=== PATIENT | female | born 1960 | race Caucasian/White ===

== ENCOUNTER → 2016-08-14 | Outpatient (CLI) | payer BC ==
[~2016-08-14] MED LIST: ACET-1138 PO; ASPEC81 PO; ATV/1 PO; ATV1 PO; BUPR-79 PO; CLB200 PO; LEVO50TA6 PO; NAPR1TAB9 PO; ONDA8TAB6 PO; RXC5 PO; SNK PO
[2016-08-14 19:04] LABS: THYROID STIMULATING HORMONE 1.25 uIu/ml (0.300-4.500)
== END | disposition home or self-care (01) ==
LOC: C.LABMFLN 12:01
PROVIDERS: ATTEND Family Medicine
DX: E03.9 Hypothyroidism, unspecified (principal)

== ENCOUNTER 2016-09-11 10:42 | Inpatient (IN) | payer BC ==
[2016-09-01 13:53] VITALS: BMI 41.0
--- NOTE | 2016-09-01 14:23 | PAT Medication Instructions ---
Service Date Sep 01, 2016. Current Home Medication List Bupropion (Wellbutrin Sr), 150 MG PO QAM Levothyroxine Sodium (Levothyroxine Sodium), 1 TAB PO QAM Lorazepam (Ativan), 1 MG PO HS Naproxen (Aleve), 440 MG PO BID PRN for online publisher Instructions For Your Scheduled Surgery Naproxen (Aleve), 440 MG PO BID PRN for RN (check with surgeon for instructions) - Take the following medications the morning of surgery with a sip of water: Levothyroxine Sodium (Levothyroxine Sodium), 1 TAB PO QAM Bupropion (Wellbutrin Sr), 150 MG PO QAM - Take the following medications as scheduled the night before surgery: Lorazepam (Ativan), 1 MG PO HS If you have any questions please call us at [phone] (Johanne Yi PA-C ) or [phone] or [phone]
[2016-09-01 15:00] LABS: BASO % 0.1 %; BASO ABS # 0.01 K/uL (0-0.2); COMPLETE YES; EOS % 2.1 %; HEMATOCRIT 35.8 % (37-47); IG% 0.1 %; LYMPH % 18.3 %; LYMPH ABS # 1.22 K/uL (1.2-3.4); MEAN CELL VOLUME 92.7 fL (80-100); MEAN CORPUSCULAR HEMOGLOBIN 31.1 pg (25-34); MEAN CORPUSCULAR HGB CONC 33.5 g/dl (32-36); MEAN PLATELET VOLUME 12.8 fL (7.4-10.4); MONO % 6.3 %; NEUT % 73.1 %; PLATELET COUNT 224 K/uL (130-400); RED BLOOD COUNT 3.86 M/uL (4.2-5.4); WHITE BLOOD COUNT 6.68 K/uL (4.8-10.8)
[2016-09-01 15:10] LABS: URINE APPEARANCE CLEAR (CLEAR); URINE BILIRUBIN NEG (NEG); URINE COLOR YELLOW; URINE EPITHELIAL CELL AUTO >30 /lpf (0-5); URINE NITRITE NEG (NEG); URINE SPECIFIC GRAVITY 1.018 (1.000-1.030); UROBILINOGEN NEG (NEG); ZZUR CULT IF INDIC CLEAN CATCH YES
[2016-09-01 15:12] LABS: PARTIAL THROMBOPLASTIN RATIO 1.1; PROTHROMBIN TIME (PATIENT) 10.3 SECONDS (9.0-12.0)
[2016-09-01 15:17] LABS: MANUAL MICROSCOPIC REQUIRED? NO; REVIEW REQ? NO
[2016-09-01 16:39] LABS: BUN/CREATININE RATIO 23.3 (10-20); CALCIUM 8.6 mg/dl (8.5-10.1); CREATININE 0.68 mg/dl (0.60-1.20); POTASSIUM 3.8 mmol/L (3.5-5.1)
--- NOTE | 2016-09-08 08:49 | HISTORY & PHYSICAL EXAMINATION ---
DATE OF ADMISSION: 09/11/2016 CHIEF COMPLAINT: Right hip pain. HISTORY OF PRESENT ILLNESS: Ms. Tyler is a 56-year-old female with a 1-year history of right hip pain. The patient previously had spine issues and was treated accordingly. However, she continued to have residual right hip pain she rates at 10/10. She was then found to have an arthritic hip. She has failed conservative treatment. She has been ambulating with a cane and she is scheduled for right hip replacement. PAST MEDICAL HISTORY: Thyroid disease, obesity. She denies heart disease, diabetes or DVT. PAST SURGICAL HISTORY: Tubal ligation, cholecystectomy, decompression and fusion lumbar side. SOCIAL HISTORY: The patient denies alcohol or tobacco use. She lives in a 1-story home. 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 FAMILY HISTORY: Negative for DVT. MEDICATIONS: Levothyroxine 50 mcg daily, bupropion 150 mg daily, lorazepam 1 mg daily, Aleve 2 tablets twice daily. ALLERGIES: CODEINE AND IV CONTRAST. REVIEW OF SYSTEMS: See HPI. Ten other systems reviewed, all negative. PHYSICAL EXAMINATION: VITAL SIGNS: Height 5 foot 2, weight 222 pounds, BMI is 41. GENERAL: This is a well-developed, well-nourished female who is alert and oriented x3. Mood and affect are appropriate. HEAD, EYES, EARS, NOSE, AND THROAT: Normocephalic, atraumatic. Mucous membranes are moist and intact. NECK: Supple without lymphadenopathy. HEART: Regular rate and rhythm without murmurs, rubs or gallops. LUNGS: Clear to auscultation without wheezes or rhonchi. ABDOMEN: Soft and nontender. Bowel sounds are equal and active. EXTREMITIES: No ecchymosis, redness or warmth. Thigh and calf are soft and nontender. She walks with an antalgic gait. Log roll of the hip reproduces pain in the groin. Range of motion is decreased. She is neurovascularly intact with +5/5 strength. She has mild lower extremity edema. X-RAY EXAMINATION: AP and lateral views show joint space narrowing and osteophyte formation. IMPRESSION: 1. Degenerative joint disease, right hip. 2. Morbid obesity. PLAN: The patient will be admitted for a right total hip arthroplasty. We will plan on lateral approach. We will plan on aspirin for DVT prophylaxis. PCP is Dr. Natacha Torres [facility].
[~2016-09-11] VITALS: Ht 157.5 cm; Wt 102.3 kg
[2016-09-11] VITALS (7 sets, daily range): BP systolic 90–141; BP diastolic 61–79; PULSE 65–89; TEMP 36.3–36.9; O2SAT 97–100; Ht 157.5 cm; Wt 102.3 kg
[2016-09-11] MEDS: TRANEXAMIC ACID INJ 1,000 MG in SODIUM CHLORIDE 0.9% 100ML 100 ML IV SCH ×2 (06:30→12:48)
[~2016-09-11 10:42] MED LIST changes: -ACET-1138 PO; +ACETAMINOPHEN 500 MG TAB PO SCH; -ASPEC81 PO; -ATV1 PO; +BUPIVACAINE 0.5 % 5 MG/1 ML PF 10ML VIAL ONE; +CEFAZOLIN 2000 MG/60 ML D5W 60 ML IV SCH; -CLB200 PO; +CeleBREX 200 MG CAP PO SCH; +DEXAMETHASONE 4 MG TAB PO SCH; +FAMOTIDINE 20 MG TAB PO SCH; +GABAPENTIN 300 MG CAP PO SCH; +LACTATED RINGER'S 1000ML 1,000 ML IV SCH; +LACTATED RINGER'S 1000ML 500 ML IV ONE; +LACTATED RINGER'S 1000ML IV SCH; +METOCLOPRAMIDE HCL 10 MG TAB PO SCH; -ONDA8TAB6 PO; +OXYCODONE HCL 10 MG TABCR (OXYCONTIN) PO SCH; +POLYMYXIN B SULFATE 100,000 UNITS in NSS 100ML IR SCH; -RXC5 PO; -SNK PO; +VANCOMYCIN INJ 400 MG in NSS 100ML IR SCH
--- NOTE | 2016-09-11 12:14 | History & Physical Bridge Note ---
H&P Re-Evaluation Bridge Note: I have examined the patient, reviewed the History & Physical and in the interval since the performance of the History & Physical I have noted the following changes of clinical significance: No changes noted
[2016-09-11] MEDS ORDERED: FENTANYL CITRATE INJ 50 MCG/1 ML 2 ML VIAL ONE (12:17)
[2016-09-11] MEDS ORDERED: LIDOCAINE HCL 2% 2 ML VIAL (20MG/ML) ONE (12:17)
[2016-09-11] MEDS ORDERED: MIDAZOLAM HCL 1 MG/ML 2ML VIAL ONE ×2 (12:17→13:50)
[2016-09-11] MEDS ORDERED: PROPOFOL IV EMULSION 10 MG/ML 20 ML VIAL IV ONE (12:17)
[2016-09-11] MEDS ORDERED: ONDANSETRON INJ 2 MG/ML 2 ML VIAL ONE (12:17)
[2016-09-11] MEDS ORDERED: DEXAMETHASONE SOD INJ 4 MG/ML VIAL ONE (12:17)
[2016-09-11] MEDS ORDERED: POVIDONE-IODINE OP SOLN 30 ML BTL ONE (12:50)
[2016-09-11] MEDS ORDERED: ORTHO JOINT ANESTHETIC ONE (12:50)
[2016-09-11] MEDS ORDERED: BACITRACIN 50000 UNIT VIAL ONE (12:50)
[2016-09-11] MEDS ORDERED: ATROPINE SULFATE 0.1 MG/ML 5ML SYR IV PRN (13:30)
[2016-09-11] MEDS ORDERED: ONDANSETRON INJ 2 MG/ML 2 ML VIAL IV PRN ×2 (13:30→15:30)
[2016-09-11] MEDS ORDERED: EpHEDrine SULFATE INJ 50 MG/ML AMP IV PRN (13:30)
[2016-09-11] MEDS ORDERED: FENTANYL CITRATE INJ 50 MCG/1 ML 2 ML VIAL IV PRN (13:30)
[2016-09-11] MEDS: ROPIVACAINE 5MG/ML 30 ML 150 MG, BUPIVACAINE/EPINEPHR 0.5% MPF 30 ML, KETOROLAC TROMETH... INFIL SCH ×14 (14:35→15:22)
--- NOTE | 2016-09-11 15:16 | [facility] Post Operative Brief Note ---
Immediate Operative Summary Operative Date Sep 11, 2016. Pre-Operative Diagnosis Right Hip Degenerative Joint Disease Post-Operative Diagnosis Same as pre-operative MORBID OBESITY BMI 42 Procedure(s) Performed Right Total Hip Arthroplasty, Direct Anterior Surgeon Dr. Samson Brooke Return Checker Surgeon(s) Crystal Cole PA-C Estimated Blood Loss 300 Findings DJD Specimens SPECIMEN: A: Right Femoral Head Complication(s) None Disposition Recovery Room / PACU
[2016-09-11] MEDS ORDERED: SOD PHOSPHATE/SOD BIPHOSPHATE ENEMA 132 ML BTL PR PRN (15:30)
[2016-09-11] MEDS ORDERED: BISACODYL 10 MG SUPP PR PRN (15:30)
[2016-09-11] MEDS ORDERED: MAGNESIUM HYDROXIDE SUSP 30 ML UDC PO PRN (15:30)
[2016-09-11] MEDS ORDERED: METOCLOPRAMIDE HCL INJ 5 MG/ML 2 ML VIAL IV PRN (15:30)
[2016-09-11] MEDS ORDERED: ZOLPIDEM TARTRATE 5 MG TAB PO PRN (15:30)
[2016-09-11] MEDS ORDERED: DiphenhydrAMINE HCL 50 MG/ML VIAL IV PRN (15:30)
[2016-09-11] MEDS ORDERED: TRAMADOL HCL 50 MG TAB PO PRN (15:30)
[2016-09-11] MEDS ORDERED: ALUMINUM/MAGNESIUM/SIMETH (MAALOX MAX) 30 ML UDC PO PRN (15:30)
[2016-09-11] MEDS ORDERED: MoRPHine SULFATE 2 MG/ML CARP IV PRN (15:30)
--- NOTE | 2016-09-11 16:26 | DIAGNOSTIC IMAGING REPORT ---
RIGHT PELVIS/UNILATERAL HIP 1 VIEW CLINICAL HISTORY: IN PACU - A/P PELVIS and LATERAL HIP INCLUDING ALL OF IMPLANT Right hip replacement COMPARISON: None. DISCUSSION: Status post total right hip arthroplasty. Good contact between prosthetic and underlying bone. Surgical drain is present expected soft tissue postoperative change IMPRESSION: Anatomic alignment status post total right hip replacement Electronically signed by: Tony Alvarez M.D. 09/11/2016 4:24 PM Dictated Date/Time: 09/11/2016 4:23 PM
--- NOTE | 2016-09-11 17:34 | Anesthesiology Progress Note ---
Anesthesia Post Op Note Date & Time Sep 11, 2016 at 17:33 Vital Signs Pain Intensity: 0 Vital Signs Past 12 Hours Date Time Temp Pulse Resp B/P Pulse Ox O2 Delivery O2 Flow Rate FiO2 09/11/16 17:00 36.5 60 16 113/59 100 Nasal Cannula 2 09/11/16 16:50 36.5 56 16 111/43 99 Nasal Cannula 2 09/11/16 16:40 36.5 58 16 106/57 100 Nasal Cannula 2 09/11/16 16:30 57 16 101/62 100 Nasal Cannula 2 09/11/16 16:20 60 16 110/47 100 Nasal Cannula 2 09/11/16 16:10 66 16 101/41 100 Nasal Cannula 2 09/11/16 16:00 73 16 113/44 100 Mask 10 09/11/16 15:50 63 16 104/43 100 Mask 10 09/11/16 15:43 36. 70 16 94/50 100 Mask 10 09/11/16 11:01 36.9 89 18 141/79 99 Room Air Notes Mental Status: alert / awake / arousable, participated in evaluation Pt Amnestic to Procedure: Yes Nausea / Vomiting: adequately controlled Pain: adequately controlled Airway Patency, RR, SpO2: stable & adequate BP & HR: stable & adequate Hydration State: stable & adequate Neuraxial Anesthesia: was administered, sensory block is resolving Anesthetic Complications: no major complications apparent
[2016-09-11] MEDS: D5W AND 1/2NSS + 20MEQ KCL 1,000 ML IV SCH (18:23)
[2016-09-11] MEDS: KETOROLAC TROMETHAMINE 30 MG/ML VIAL IV. SCH ×2 (18:25→23:34)
[2016-09-11] MEDS: OXYCODONE HCL IR 5 MG TAB (IMMEDIATE RELEASE) PO PRN (19:21)
[2016-09-11] MEDS: ACETAMINOPHEN 500 MG TAB PO SCH (20:50)
[2016-09-11] MEDS: ASPIRIN 81 MG ECTAB PO SCH (20:51)
[2016-09-11] MEDS ORDERED: SENNA 8.6 MG TAB PO SCH (21:00)
[2016-09-11] MEDS ORDERED: LORAZEPAM 1 MG TAB PO SCH (21:00)
[2016-09-11] MEDS ORDERED: TRANEXAMIC ACID INJ 1,000 MG in SODIUM CHLORIDE 0.9% 100ML 100 ML IV SCH (21:00)
[2016-09-11] MEDS: CEFAZOLIN IV 2,000 MG in DEXTROSE 5% 50ML 50 ML IV SCH (21:40)
--- NOTE | 2016-09-12 00:17 | OPERATIVE REPORT ---
DATE OF OPERATION: 09/11/2016 PREOPERATIVE DIAGNOSES: 1. Degenerative arthritis, right hip. 2. Morbid obesity, body mass index of 42. POSTOPERATIVE DIAGNOSES: Same. PROCEDURE: Right total hip replacement. SURGEON: Samson Brooke MD. CHEMISTRY LABORATORY TECHNICIAN: LETICIA Torres. ANESTHESIA: Spinal. BLOOD LOSS: 300 mL. REPLACEMENT FLUIDS: 2300 mL crystalloid. DRAINS: Hemovacs x1. CULTURES: None. COMPLICATIONS: None. COMPONENTS USED: Tamayo \T\ Nephew polar hip system: Acetabulum size 48, femur size 1 standard offset, femoral head -3, 32 mm. NOTE: LETICIA Torres was present and assisted throughout due to the complicated nature of this case. She helped with preparation and setup. She first assisted throughout and she personally closed the muscle fascia, subcutaneous and skin layers and applied the postoperative dressing. DESCRIPTION: Following satisfactory spinal, the patient was supine. The right hip was placed in the traction device, the left hip in the well-leg cheema. The right hip was then prepared with ChloraPrep and draped sterilely with the drape. Following a surgical time-out, an anterior approach in the interval between the sartorius and tensor muscles was completed. The circumflex femoral vessels were identified and ligated with some difficulty. The approach down to the muscle layer was very difficult because of at least a 5-6 inch subcutaneous fat layer and an abdominal pannus, which made the exposure difficult. This required additional time and effort to expose the circumflex femoral vessels. There were multiple circumflex femoral vessels, which made ligation difficult in the deep hole. Eventually, the vessels were ligated. Bleeding was controlled and an anterior capsulotomy was completed. This revealed a very arthritic femoral neck and head. The femoral neck was trimmed. The patient's obese habitus made trimming difficult and the femoral neck had to be recut a second time. The head was removed. The acetabular self-retaining retractor was placed with difficulty. The acetabulum was prepared after excision of soft tissue with reaming and a 48 shell was impacted into an anatomic position and secured with a dome screw. Local anesthetic was placed and after irrigation, the poly liner was placed. The femur was placed into a position of external rotation, extension and adduction. This allowed access to the proximal femoral canal. The patient's pannus made the exposure difficult. The canal was prepared up to only a size 1. Intraoperative fluoroscopy showed good fit and fill of the proximal canal. The leg length was slightly long, but this was the smaller size stem and the smaller size head available and it was felt that this was acceptable. The hip was dislocated. The trial component removed. The final implant placed and reduced with similar position confirmed. The wound was irrigated and Betadine could not be used because of an iodine allergy. The capsule was closed with 1 Vicryl interrupted. A drain was placed. The muscle fascia was closed with a running suture of #1 Vicryl. The fatty layer was closed with multiple layers with 1-0 and 2-0 Vicryl and the skin with a running subcuticular stitch of 3-0 V-Loc. Dermabond and a dry dressing were applied. The patient was returned to her bed in stable condition. I attest to the content of the Intraoperative Record and any orders documented therein. Any exceptio ns are noted below.
[2016-09-12] MEDS: OXYCODONE HCL IR 5 MG TAB (IMMEDIATE RELEASE) PO PRN ×2 (01:03→11:31)
[2016-09-12] MEDS: D5W AND 1/2NSS + 20MEQ KCL 1,000 ML IV SCH ×2 (03:42→13:25)
[2016-09-12] MEDS: ACETAMINOPHEN 500 MG TAB PO SCH ×2 (03:43→11:32)
[2016-09-12 03:44] VITALS: BP 115/71; PULSE 59; TEMP 36.5; O2SAT 98
[2016-09-12 05:38] LABS: COMPLETE YES; HEMATOCRIT 28.6 % (37-47); IG% 0.2 %; LYMPH % 5.3 %; LYMPH ABS # 0.63 K/uL (1.2-3.4); MEAN CELL VOLUME 91.7 fL (80-100); MEAN CORPUSCULAR HEMOGLOBIN 31.7 pg (25-34); MEAN CORPUSCULAR HGB CONC 34.6 g/dl (32-36); MEAN PLATELET VOLUME 12.9 fL (7.4-10.4); MONO % 5.2 %; NEUT % 89.3 %; PLATELET COUNT 198 K/uL (130-400); RED BLOOD COUNT 3.12 M/uL (4.2-5.4); WHITE BLOOD COUNT 11.81 K/uL (4.8-10.8)
[2016-09-12] MEDS: CEFAZOLIN IV 2,000 MG in DEXTROSE 5% 50ML 50 ML IV SCH (05:40)
[2016-09-12] MEDS: KETOROLAC TROMETHAMINE 30 MG/ML VIAL IV. SCH ×2 (05:41→11:31)
[2016-09-12 05:59] LABS: CALCIUM 8.1 mg/dl (8.5-10.1); CREATININE 0.65 mg/dl (0.60-1.20); POTASSIUM 4.5 mmol/L (3.5-5.1)
[2016-09-12] MEDS ORDERED: LEVOTHYROXINE 50 MCG TAB PO SCH (06:00)
[2016-09-12 07:21] VITALS: BP 102/67; PULSE 70; TEMP 36.5; O2SAT 99
--- NOTE | 2016-09-12 08:09 | Orthopedic Progress Note ---
Orthopedic Progress Note Date of Service Sep 12, 2016. Subjective Post OP Day: 1 Reports: feeling well, Denies: SOB, calf pain, chest pain, light headedness, nausea / vomiting Objective calves soft nontender, N/V intact, dressing C/D/I, A&O x3, toes mobile, hemovac drainage (25/20 cc per shift) Date Time Temp Pulse Resp B/P Pulse Ox O2 Delivery O2 Flow Rate FiO2 09/12/16 07:21 36.5 70 16 102/67 99 Room Air 09/12/16 03:44 36.5 59 16 115/71 98 Room Air 09/11/16 22:53 36.4 71 16 90/61 98 Room Air 09/11/16 20:11 36.4 65 18 102/67 99 Room Air 2.0 09/11/16 19:45 Nasal Cannula 2.0 09/11/16 19:20 36.5 83 16 102/71 98 Nasal Cannula 2.0 09/11/16 18:15 36.3 65 18 105/69 100 Nasal Cannula 2.0 09/11/16 17:56 36.5 67 16 110/76 97 Nasal Cannula 2.0 09/11/16 17:15 36.5 65 16 105/61 98 Nasal Cannula 2.0 09/11/16 17:15 Nasal Cannula 2.0 09/11/16 17:15 Nasal Cannula 2.0 09/11/16 17:00 36.5 60 16 113/59 100 Nasal Cannula 2 09/11/16 16:50 36.5 56 16 111/43 99 Nasal Cannula 2 09/11/16 16:40 36.5 58 16 106/57 100 Nasal Cannula 2 09/11/16 16:30 57 16 101/62 100 Nasal Cannula 2 09/11/16 16:20 60 16 110/47 100 Nasal Cannula 2 09/11/16 16:10 66 16 101/41 100 Nasal Cannula 2 09/11/16 16:00 73 16 113/44 100 Mask 10 09/11/16 15:50 63 16 104/43 100 Mask 10 09/11/16 15:43 36. 70 16 94/50 100 Mask 10 09/11/16 11:01 36.9 89 18 141/79 99 Room Air Laboratory Results 24 Hours: Test 09/12/16 05:00 White Blood Count 11.81 K/uL Red Blood Count 3.12 M/uL Hemoglobin 9.9 g/dL Hematocrit 28.6 % Mean Corpuscular Volume 91.7 fL Mean Corpuscular Hemoglobin 31.7 pg Mean Corpuscular Hemoglobin Concent 34.6 g/dl Platelet Count 198 K/uL Mean Platelet Volume 12.9 fL Neutrophils (%) (Auto) 89.3 % Lymphocytes (%) (Auto) 5.3 % Monocytes (%) (Auto) 5.2 % Eosinophils (%) (Auto) 0.0 % Basophils (%) (Auto) 0.0 % Neutrophils # (Auto) 10.54 K/uL Lymphocytes # (Auto) 0.63 K/uL Monocytes # (Auto) 0.62 K/uL Eosinophils # (Auto) 0.00 K/uL Basophils # (Auto) 0.00 K/uL Assessment & Plan Assessment: POD#1 SP RIGHT KELLE, DIRECT ANTERIOR Inhouse Planning Pain Management: Celebrex, PO Tylenol, Oxy IR DVT Prophylaxis: TEDs, SCDs, ASA Discharge Planning Discharge Planning: home with home health ([facility])
--- NOTE | 2016-09-12 08:10 | Discharge Instructions ---
Discharge Instructions Date of Service Sep 12, 2016. Admission Reason for Admission: Right Hip Degenerative Arthritis Discharge Discharge Diagnosis / Problem: SP RIGHT KELLE, DIRECT ANTERIOR Discharge Goals Goal(s): Decrease discomfort, Improve function, Increase independence Activity Recommendations Activity Limitations: per Instructions/Follow-up section . Instructions / Follow-Up Instructions / Follow-Up ACTIVITY RECOMMENDATIONS: SELF CARE INSTRUCTIONS AFTER TOTAL HIP REPLACEMENT : Direct Anterior Approach Until the incision and soft tissues around your hip have healed, there is a possibility that the hip prosthesis could dislocate. A. Hip flexion ( Up & Down out of chair or steps ) may be difficult. This is normal. B. Numbness in front of the thigh is also normal for a few weeks. C. Use hand rails when walking on stairs. D. Wear low heeled shoes with non-slip soles. E. Be sure that your floors are free of things that could trip you - throw rugs , electrical cords, small objects. Avoid wet and waxed floors, especially with crutches and canes. F. Try to walk several times a day with rest periods between. G. Continue with all the exercises taught to you in the hospital. Again, make walking a part of your daily routine. SPECIAL CARE INSTRUCTIONS: VERY IMPORTANT TO READ AND REVIEW A. You may still be at risk for phlebitis and blood clots. 1. Wear surgical stockings (TOSIN hose) for 2 weeks after surgery to improve circulation and reduce swelling. 2. Take Aspirin 81mg twice daily for 4 weeks or as directed by your doctor. This is your blood thinner. 3. High risk patients may be prescribed a stronger blood thinner if necessary. 4. If you are on Coumadin normally, your family doctor/sanitation superintendent should monitor your blood work. Expect a phone call the day of or the day after bloodwork is drawn to adjust your dosage. B. You must take antibiotics before having dental work, bladder, bowel and other surgery. Your doctor will provide you with a permanent card to carry describing precautions. C. Call [facility] if you have a fever, redness or swelling around the incision, cloudy drainage from incision, or sudden increase in pain in your hip, not relieved by your regular pain medication. D. Please call the office at if you have any concerns or questions about your operation or recovery. * YOU MAY SHOWER, NO TUB BATHS UNTIL CLEARED BY YOUR DOCTOR. - Keep an extra close eye on the top portion of your incision. Be sure to keep clean & dry. * WEAR TOSIN HOSE 20 HOURS PER DAY FOR 2 WEEKS. * YOU MAY PROGRESS FROM A WALKER, TO A CANE, TO INDEPENDENT AT YOUR OWN PACE. * MOST PATIENTS WILL HAVE HOME NURSING FOR THERAPY. IF YOU DECIDE TO DO OUTPATIENT PHYSICAL THERAPY, PLEASE SCHEDULE THIS 3 TIMES PER WEEK. * DERMABOND Prineo- This is a mesh tape dressing that is covered with glue. It should remain in place until the incision is properly healed, usually 10-14 days. This dressing is designed to naturally slough off. You may trim the excess mesh tape as it peels off. Incision may be briefly wet in a shower. Dry immediately by blotting with a clean, dry towel. Do not bath or swim until instructed by your doctor. Do not scratch, rub, or pick at the dressing. Do not apply any topical ointments or lotions until dressing is completely removed and/or instructed by your doctor. There may be a small piece of suture material at one end of your incision. Do not pull or trim this. If it is bothersome or catching on clothing, you may cover it with a band-aid. FOLLOW UP VISIT: If appointment is not already scheduled: Please call [facility] to make a follow-up appointment for 2 weeks after your surgery at . Current Hospital Diet Patient's current hospital diet: Regular Diet Discharge Diet Recommended Diet: Regular Diet Procedures Procedures Performed: Right Total Hip Arthroplasty, Direct Anterior Pending Studies Studies pending at discharge: no Medical Emergencies . Who to Call and When: Medical Emergencies: If at any time you feel your situation is an emergency, please call 911 immediately. . Non-Emergent Contact Non-Emergency issues call your: Surgeon . "Provider Documentation" section prepared by Crystal Cole. VTE Core Measure Inpt VTE Proph given/why not?: Other Anticoagulation, T.E.D. Stockings, SCD's [place] Drug Monitoring Program Search Results: patient reviewed within database, no issues identified
[2016-09-12] MEDS ORDERED: ASPEC81 PO (08:13)
[2016-09-12] MEDS ORDERED: ONDA8TAB6 PO (08:13)
[2016-09-12] MEDS ORDERED: SNK PO (08:13)
[2016-09-12] MEDS ORDERED: CLB200 PO (08:13)
[2016-09-12] MEDS ORDERED: ACET-1138 PO (08:13)
[2016-09-12] MEDS ORDERED: RXC5 PO (08:13)
[2016-09-12] MEDS ORDERED: PANTOprazole SOD 40 MG TAB PO SCH (09:00)
[2016-09-12] MEDS ORDERED: BuPROPion SR 150 MG TABCR PO SCH (09:00)
[2016-09-12] MEDS ORDERED: MULTIVITAMIN TAB PO SCH (09:00)
[2016-09-12] MEDS: ASPIRIN 81 MG ECTAB PO SCH (09:32)
[2016-09-12 11:47] VITALS: BP 90/46; PULSE 70; TEMP 36.4; O2SAT 100
[2016-09-12 13:13] VITALS: BP 90/46; PULSE 70; TEMP 36.4; O2SAT 100
[2016-09-12 13:24] VITALS: BP 89/55; PULSE 73; O2SAT 100
--- NOTE | 2016-09-13 15:07 | DIAGNOSTIC IMAGING REPORT ---
FLUOROSCOPIC IMAGES RIGHT HIP CLINICAL HISTORY: Right hip arthroplasty. COMPARISON STUDY: No previous studies for comparison. Fluoroscopy time: 16 seconds. FINDINGS: Single AP fluoroscopic image demonstrates anatomic alignment of the right hip arthroplasty with acetabular screw. There is no fracture or unexpected radiopaque foreign body. IMPRESSION: Expected intraoperative findings during right hip arthroplasty. Electronically signed by: Yuval Paredes M.D. 09/13/2016 3:05 PM Dictated Date/Time: 09/13/2016 3:04 PM
[2016-09-13] MEDS ORDERED: CeleBREX 200 MG CAP PO SCH (21:00)
--- NOTE | 2016-09-20 08:58 | DISCHARGE SUMMARY ---
DISCHARGE DIAGNOSIS: Degenerative joint disease right hip. SECONDARY DIAGNOSIS: Morbid obesity. CONSULTS: None. COMPLICATIONS: None. PROCEDURE: The patient underwent a direct anterior right total hip arthroplasty with Dr. Brooke on 09/11/2016. BRIEF HISTORY: Please see previously dictated history and physical. HOSPITAL SUMMARY: The patient was admitted on the above day for the above procedure. Procedure went without complication. Postop day 1, the patient was feeling well without complaints. She denied chest pain or shortness of breath. Vital signs were stable. She was afebrile. Dressing was clean, dry and intact. She was neurovascularly intact. Calves were soft and nontender. Hemovac drained 25 and 20 mL per shift. Hemoglobin was 9.9. The patient began physical therapy per protocol. She was discharged to home later that day in stable condition. For further review please see the chart. Lab, x-ray data and discharge instructions as per chart.
== END 2016-09-12 15:30 | disposition home health service (06) | DRG 470 ==
LOC: ENRESERVTM → ENRESERVDT → C.ACU 10:42 → C.3E 11:43
PROVIDERS: ADMIT Orthopaedic Surgery; ATTEND Orthopaedic Surgery
PROC: 0SR904Z Replacement of Right Hip Joint with Ceramic on Polyethylene Synthetic Substitute, Open Approach (ICD-10-PCS; principal; 2016-09-11 12:45)
DX: M16.11 Unilateral primary osteoarthritis, right hip (principal); Z68.41 Body mass index [BMI] 40.0-44.9, adult; E07.9 Disorder of thyroid, unspecified; F41.9 Anxiety disorder, unspecified; F32.9 Major depressive disorder, single episode, unspecified; E66.01 Morbid (severe) obesity due to excess calories; Z98.1 Arthrodesis status; Z79.899 Other long term (current) drug therapy

== ENCOUNTER → 2017-07-24 | Outpatient (CLI) | payer BC ==
[~2017-07-24] MED LIST changes: +ACET-1138 PO; -ACETAMINOPHEN 500 MG TAB PO SCH; +ASPEC81 PO; -BUPIVACAINE 0.5 % 5 MG/1 ML PF 10ML VIAL ONE; -CEFAZOLIN 2000 MG/60 ML D5W 60 ML IV SCH; +CLB200 PO; -CeleBREX 200 MG CAP PO SCH; -DEXAMETHASONE 4 MG TAB PO SCH; -FAMOTIDINE 20 MG TAB PO SCH; -GABAPENTIN 300 MG CAP PO SCH; -LACTATED RINGER'S 1000ML 1,000 ML IV SCH; -LACTATED RINGER'S 1000ML 500 ML IV ONE; -LACTATED RINGER'S 1000ML IV SCH; -METOCLOPRAMIDE HCL 10 MG TAB PO SCH; -NAPR1TAB9 PO; -OXYCODONE HCL 10 MG TABCR (OXYCONTIN) PO SCH; -POLYMYXIN B SULFATE 100,000 UNITS in NSS 100ML IR SCH; +RXC5 PO; +SNK PO; -VANCOMYCIN INJ 400 MG in NSS 100ML IR SCH
== END | disposition home or self-care (01) ==
LOC: C.LABMFLN 15:52
PROVIDERS: ATTEND Family Medicine
DX: E03.9 Hypothyroidism, unspecified (principal)

== ENCOUNTER → 2017-09-11 | Outpatient (CLI) | payer BC ==
[~2017-09-11] MED LIST changes: -ASPEC81 PO; +ASPI-320 PO
== END | disposition home or self-care (01) ==
LOC: C.LABMFLN 15:27
PROVIDERS: ATTEND Family Medicine
DX: E03.9 Hypothyroidism, unspecified (principal)